=== PATIENT | female | born 1970 | race Caucasian/White ===

== ENCOUNTER 2017-10-08 10:56 | Inpatient (IN) | payer OTHER ==
--- NOTE | 2017-10-08 12:17 | PDOC ---
History of Present Illness - General History Source: Patient, Family Exam Limitations: Language Barrier (Refused translater, but had Son translate for her) - History of Present Illness Initial Comments: 10/08/17 13:07 The patient is a 47 y.o female with significant past medical history of DM, HLD , HTN, who presents to the emergency room today complaining of a progressively worsening wound on her right great toe. She reports that she noticed a blister 5 days ago that has gotten larger. She states that the redness and swelling started to spread to her other toes and foot. She denies numbness and tingling of the lower extremity. Denies calf pain. Denies fever, chills, nausea, vomiting. Allergies: penicillin - pt describes the allergic reaction as "her body going to sleep." PCP: Dr. Rui Meza 10/08/17 13:47 <Azra Nguyen - Last Filed: 10/08/17 13:47> <Manohar Carrington - Last Filed: 10/08/17 14:54> - General Chief Complaint: Wound Stated Complaint: wound Time Seen by Provider: 10/08/17 12:17 Past History <Azra Nguyen - Last Filed: 10/08/17 13:47> - Past Medical History COPD: No Diabetes: Yes HTN: Yes Hypercholesterolemia: Yes - Surgical History Appendectomy: Yes - Suicide/Smoking/Psychosocial Hx Smoking History: Never smoked Have you smoked in the past 12 months: No Information on smoking cessation initiated: No Hx Alcohol Use: No Drug/Substance Use Hx: No Substance Use Type: None <Manohar Carrington - Last Filed: 10/08/17 14:54> - Past Medical History Allergies/Adverse Reactions: Allergies Allergy/AdvReac Type Severity Reaction Status Date / Time Penicillins Allergy Verified 10/08/17 10:58 Review of Systems - Review of Systems Able to Perform ROS?: Yes Comments:: 10/08/17 13:08 CONSTITUTIONAL: No fever, no chills, no fatigue EYES: No visual changes ENT: No ear pain, no sore throat CARDIOVASCULAR: No chest pain, no palpitations RESPIRATORY: No cough, no SOB GI: No abdominal pain, no nausea, no vomiting, no constipation, no diarrhea GENITOURINARY: No dysuria, no frequency, no hematuria MUSKULOSKELETAL: No back pain, no joint pain, no myalgias SKIN: +progressively worsening wound on the right great toe. NEURO: No headache <Azra Nguyen - Last Filed: 10/08/17 13:47> *Physical Exam - Vital Signs Last Vital Signs Temp Pulse Resp BP Pulse Ox 98.3 F 76 16 171/79 100 10/08/17 10:58 10/08/17 10:58 10/08/17 10:58 10/08/17 10:58 10/08/17 10:58 - Physical Exam Comments: 10/08/17 13:08 CONSTITUTIONAL: Well-appearing; well-nourished; in no apparent distress HEAD: Normocephalic; atraumatic EYES: PERRL; EOM intact ENMT: External appears normal; normal oropharynx NECK: Supple; nontender; no cervical lymphadenopathy CARD: Normal S1, S2; no murmurs, rubs, or gallops RESP: Normal chest excursion with respiration; breath sounds clear and equal bilaterally; no wheezes, rhonchi, or rales ABD: Soft, non-distended; non-tender; no palpable organomegaly, no palpable hernias NEURO: No focal neurological deficiencies. <Azra Nguyen - Last Filed: 10/08/17 13:47> - Vital Signs Last Vital Signs Temp Pulse Resp BP Pulse Ox 98.3 F 76 16 171/79 100 10/08/17 10:58 10/08/17 10:58 10/08/17 10:58 10/08/17 10:58 10/08/17 10:58 - Physical Exam Comments: 10/08/17 14:25 EXTR: R. foot: + extensive erythema of the dorsal and plantar aspects of the foot, with soft tissue swelling extending to the ankle joint proximally; foot is warm to touch, with a 2cm ulceration to the medial aspect of the 1st mtp joint with several small areas of necrosis. DP/TP: +2 Skin: see above <Manohar Carrington - Last Filed: 10/08/17 14:54> ED Treatment Course - LABORATORY CBC & Chemistry Diagram: 10/08/17 13:05 10/08/17 13:05 <Azra Nguyen - Last Filed: 10/08/17 13:47> - LABORATORY CBC & Chemistry Diagram: 10/08/17 13:05 10/08/17 13:05 <Manohar Carrington - Last Filed: 10/08/17 14:54> Medical Decision Making - Medical Decision Making 10/08/17 14:29 Patient is a 47-year-old female with history of diabetes who presents with signs and symptoms of acute right foot cellulitis with possible great toe osteomyelitis. Blood cultures been obtained. Will obtain ESR and CRP. Right foot x-ray shows periosteal reaction likely consistent with osteomyelitis. We' ll administer broad-spectrum antibiotics. Will admit for broad-spectrum IV antibiotics and further treatment. <Manohar Carrington - Last Filed: 10/08/17 14:54> *DC/Admit/Observation/Transfer - Attestations Scribe Attestion: 10/08/17 13:08 Documentation prepared by MAYNOR Blackman, acting as clinical medical transcriptionist for Manohar Carrington MD. <Azra Nguyen - Last Filed: 10/08/17 13:47> - Discharge Dispostion Admit: Yes - Attestations Physician Attestion: 10/08/17 14:24 The documentation was prepared by the scribe under my direct supervision. I have reviewed the documentation which correctly represents the findings, medical decision-making and critical action taken by me. <Manohar Carrington - Last Filed: 10/08/17 14:54> Diagnosis at time of Disposition: Osteomyelitis Qualifiers: Osteomyelitis type: unspecified type Osteomyelitis location: foot Laterality: right Qualified Code(s): M86.9 - Osteomyelitis, unspecified - Discharge Dispostion Condition at time of disposition: Fair - Referrals Referrals: Rui Meza MD [Primary Care Provider] - - Patient Instructions - Post Discharge Activity
[2017-10-08 13:21] LABS: BASO % 0.6 % (0-2.0); EOS % 0.6 % (0-4.5); HEMATOCRIT 41.1 % (32.4-45.2); HEMOGLOBIN 13.9 GM/dL (10.7-15.3); LYMPH % 22.2 % (8-40); MCH 29.5 pg (25.7-33.7); MCHC 33.8 g/dl (32.0-36.0); MEAN CELL VOLUME 87.2 fl (80-96); MEAN PLT VOLUME 9.8 fl (7.5-11.1); MONO % 4.9 % (3.8-10.2); NEUT % 71.7 % (42.8-82.8); PLATELET COUNT 341 K/MM3 (134-434); RBC 4.72 M/mm3 (3.60-5.2); RDW 13.1 % (11.6-15.6); WHITE BLOOD COUNT 10.2 K/mm3 (4.0-10.0)
[2017-10-08 13:32] LABS: INR 1.1 (0.82-1.09); PROTHROMBIN TIME (PATIENT) 12.4 SEC (9.98-11.88)
[2017-10-08] MEDS ORDERED: VANCOMYCIN 1,250 MG in DEXTROSE 5%-WATER - 250 ML IVPB ONE (13:46)
[2017-10-08] MEDS ORDERED: PIPERACIL/TAZOB 3.375 GM 3.375 GM/50 ML PREMIX IVPB ONE (13:47)
[2017-10-08 13:53] LABS: ALBUMIN 3.7 g/dl (3.4-5.0); ALK PHOS 131 U/L (45-117); ANION GAP 6 (8-16); BILIRUBIN,TOTAL 0.4 mg/dL (0.2-1.0); BLOOD UREA NITROGEN 8 mg/dL (7-18); CHLORIDE 105 mmol/L (98-107); CO2 28 mmol/L (21-32); CREATININE 0.4 mg/dL (0.55-1.02); GLUCOSE,RANDOM 163 mg/dL (74-106); SGPT/ALT 18 U/L (12-78); SODIUM 139 mmol/L (136-145); TOT PROT 7.9 g/dl (6.4-8.2)
[2017-10-08 13:57] LABS: POTASSIUM 4.4 mmol/L (3.5-5.1); SGOT/AST 28 U/L (15-37)
[2017-10-08] MEDS ORDERED: PIPERACILLIN/TAZOB 3.375 GM 3.375 GM in DEXTROSE 5%-WATER - 50 ML IVPB ONE (15:00)
[2017-10-08] MEDS ORDERED: PIPERACILLIN/TAZOB 3.375 GM 3.375 GM/50 ML BAG IVPB ONE (15:28)
[2017-10-08 15:29] LABS: ERYTHROCYTE SEDIMENTATION RATE 66 mm/hr (0-20)
--- NOTE | 2017-10-08 15:37 | HP ---
CHIEF COMPLAINT: cellulitis of right foot. PCP:PCP: Dr. Rui Meza HISTORY OF PRESENT ILLNESS: The patient is a 47 y.o female with significant past medical history of DM, HLD, HTN, who was sent in by her pcp to emergency room. Abhi reports that on 6 days ago she saw a blister on her foot and she peeled it. After that some clear fluid came out and next day she noticed redness around her toe which kept on incresing. She also noticed swelling in her right great toe which has increased to middle of dorsum her foot last 3-4 days. She also reports pain 5/10, increases on touch and walk. Denies fever and chills, denies purulent discharge. Denies numbness or weakness in both legs but reports tingling sensation. Denies trauma, insect bite, wear normal fitting shoes, take care of her feet herself ( cut toe nails 2 week ago) ER course was notable for: (1)cbc, cmp (2)vanco zosyn. (3)blood culture, xray foot Recent Travel: no PAST MEDICAL HISTORY: DM, HTN, HLD PAST SURGICAL HISTORY: appendectomy, CS Social History: Smoking:no Alcohol:no Drugs: no Family History: not relevent Allergies Penicillins Allergy (Verified 10/08/17 10:58) HOME MEDICATIONS: REVIEW OF SYSTEMS CONSTITUTIONAL: Absent: fever, chills, diaphoresis, generalized weakness, malaise, loss of appetite, weight change HEENT: Absent: rhinorrhea, nasal congestion, throat pain, throat swelling, difficulty swallowing, CARDIOVASCULAR: Absent: chest pain, syncope, palpitations, irregular heart rate, lightheadedness , peripheral edema RESPIRATORY: Absent: cough, shortness of breath, dyspnea with exertion, orthopnea, wheezing, stridor, hemoptysis GASTROINTESTINAL: Absent: abdominal pain, abdominal distension, nausea, vomiting, diarrhea, constipation, melena, hematochezia GENITOURINARY: Absent: dysuria, frequency, urgency, hesitancy, hematuria, flank pain, genital pain MUSCULOSKELETAL: Absent: myalgia, arthralgia, SKIN: as above HEMATOLOGIC/IMMUNOLOGIC: Absent: easy bleeding, easy bruising, ENDOCRINE: Absent: unexplained weight gain, unexplained weight loss, heat intolerance, cold intolerance NEUROLOGIC: Absent: headache, focal weakness or paresthesias, dizziness, unsteady gait, PSYCHIATRIC: Absent: anxiety, depression, PHYSICAL EXAMINATION Vital Signs - 24 hr 10/08/17 10:58 Temperature 98.3 F Pulse Rate 76 Respiratory 16 Rate Blood Pressure 171/79 O2 Sat by Pulse 100 Oximetry (%) GENERAL: Awake, alert, and fully oriented, in no acute distress. HEAD: Normal with no signs of trauma. EARS, NOSE, THROAT: Moist mucous membranes. NECK: Normal range of motion, JVD, or masses. LUNGS: Breath sounds equal, clear to auscultation bilaterally. No wheezes, and no crackles. No accessory muscle use. HEART: Regular rate and rhythm, normal S1 and S2 without murmur, ABDOMEN: Soft, nontender, not distended, normoactive bowel sounds, no guarding, no rebound, no masses. MUSCULOSKELETAL: Normal range of motion at all joints. UPPER EXTREMITIES: 2+ pulses, warm, well-perfused. No cyanosis. No clubbing. No peripheral edema. LOWER EXTREMITIES: right foot, skin appears to be shiny, erythema present from toes and upto dorsum of foot, 2x2 cm ulcer present on medial aspect of great toe , no active discharge, erythema present around ulcer, tender to touch, margins clean. NEUROLOGICAL: Cranial nerves II-XII intact. Normal speech. sensation to fine touch present in b/l lower limb PSYCHIATRIC: Cooperative. Good eye contact. Appropriate mood and affect. SKIN: Warm, dry, Laboratory Results - last 24 hr 10/08/17 10/08/17 10/08/17 13:05 13:05 13:05 WBC 10.2 H RBC 4.72 Hgb 13.9 Hct 41.1 MCV 87.2 MCH 29.5 MCHC 33.8 RDW 13.1 Plt Count 341 MPV 9.8 Neutrophils % 71.7 Lymphocytes % 22.2 Monocytes % 4.9 Eosinophils % 0.6 Basophils % 0.6 ESR 66 H PT with INR 12.40 H INR 1.10 Sodium 139 Potassium 4.4 Chloride 105 Carbon Dioxide 28 Anion Gap 6 L BUN 8 Creatinine 0.4 L Creat Clearance w eGFR > 60 Random Glucose 163 H Calcium 9.0 Total Bilirubin 0.4 AST 28 ALT 18 Alkaline Phosphatase 131 H C-Reactive Protein 1.6 H Total Protein 7.9 Albumin 3.7 Blood Type Antibody Screen 10/08/17 13:05 WBC RBC Hgb Hct MCV MCH MCHC RDW Plt Count MPV Neutrophils % Lymphocytes % Monocytes % Eosinophils % Basophils % ESR PT with INR INR Sodium Potassium Chloride Carbon Dioxide Anion Gap BUN Creatinine Creat Clearance w eGFR Random Glucose Calcium Total Bilirubin AST ALT Alkaline Phosphatase C-Reactive Protein Total Protein Albumin Blood Type O POSITIVE Antibody Screen Negative ASSESSMENT/PLAN: The patient is a 47 y.o female with significant past medical history of DM, HLD, HTN, sent it by her pcp for cellulitis of right foot. Cellulitis right foot with DM, ? osteo IV antibiotic vanc, ceftriaxone limb elevation wound care consult daily dressing on ulcer on great toe. ID consult podiatry consult control blood sugar. DM hold metformin 100mg bid start sliding scale levemir 15 bid ( home dose 30 bid). If sugar remain high can go up on levemir. bgm HTN losartan 50mg daily HLD lipitor 20mg Fluid: orally allowed electrolyte: repeat in am nutrition: diabetic diet dvt pro: heparin sq gi pro: zantac dispo: medsurg. Visit type - Emergency Visit Emergency Visit: Yes Care time: The patient presented to the Emergency Department on the above date and was hospitalized for further evaluation of their emergent condition. - New Patient This patient is new to me today: Yes Date on this admission: 10/08/17 - Critical Care Critical Care patient: No Hospitalist Screening - Colonoscopy Questionnaire Colonoscopy Questionnaire: Colonoscopy Questionnaire - Patient: 50 - 75 years old and never had a screening colonoscopy: Unknown History of colon or rectal polyps, or CA: Unknown History of IBD, Crohn's disease or UC: Unknown History of abdominal radiation therapy as a child: Unknown - Relative: 1 with colon or rectal CA, or polyps at age 60 or younger: Unknown Colon or rectal CA diagnosed at age 45 or younger: Unknown Multiple relatives with colon or rectal CA: Unknown - Outcome: Screening Result: Negative Screen
--- NOTE | 2017-10-08 16:20 | PN ---
Teaching Attending Note Name of Resident: Chad Hairston ATTENDING PHYSICIAN STATEMENT I saw and evaluated the patient. I reviewed the resident's note and discussed the case with the resident. I agree with the resident's findings and plan as documented. SUBJECTIVE: This is a 47 year old woman with a history of HTN, hyperlipidemia, type 2 DM who was sent to the ED by her PCP because of a wound on her right 1st toe. The wound started as a blister 6 days ago. She broke the blister and clear fluid drained. The next day, the area became red and swollen. The redness and swelling increased and spread onto the dorsal surface of the foot. She denies fever, chills. OBJECTIVE: Vital Signs Period Temp Pulse Resp BP Sys/Heart Pulse Ox Last 24 Hr 98.3 F 76 16 171/79 100 HEART: S1S2, RRR LUNGS: Clear ABDOMEN: Obese, soft, non-zachary, non-distended, normal BS EXTREMITIES: Ulcer of medial right 1st toe with surrounding erythema. Erythema of toes and dorsal surface of right foot Laboratory Tests 10/08/17 10/08/17 10/08/17 13:05 13:05 13:05 WBC 10.2 H RBC 4.72 Hgb 13.9 Hct 41.1 MCV 87.2 MCH 29.5 MCHC 33.8 RDW 13.1 Plt Count 341 MPV 9.8 Neutrophils % 71.7 Lymphocytes % 22.2 Monocytes % 4.9 Eosinophils % 0.6 Basophils % 0.6 ESR 66 H PT with INR 12.40 H INR 1.10 Sodium 139 Potassium 4.4 Chloride 105 Carbon Dioxide 28 Anion Gap 6 L BUN 8 Creatinine 0.4 L Creat Clearance w eGFR > 60 Random Glucose 163 H Calcium 9.0 Total Bilirubin 0.4 AST 28 ALT 18 Alkaline Phosphatase 131 H C-Reactive Protein 1.6 H Total Protein 7.9 Albumin 3.7 Blood Type Antibody Screen 10/08/17 13:05 WBC RBC Hgb Hct MCV MCH MCHC RDW Plt Count MPV Neutrophils % Lymphocytes % Monocytes % Eosinophils % Basophils % ESR PT with INR INR Sodium Potassium Chloride Carbon Dioxide Anion Gap BUN Creatinine Creat Clearance w eGFR Random Glucose Calcium Total Bilirubin AST ALT Alkaline Phosphatase C-Reactive Protein Total Protein Albumin Blood Type O POSITIVE Antibody Screen Negative ASSESSMENT AND PLAN: This is a 47 year old woman with a history of HTN, hyperlipidemia, type 2 DM who presented to the ED with a wound on her right 1st toe. 1. Right 1st toe ulcer with cellulitis of right foot - Afebrile, WBC 10.2 - X-rays show no evidence of osteomyelitis but ESR is 66 - Continue Zosyn, Vancomycin - Check C-RP - Podiatry consult - Consider MRI 2. Type 2 DM - Hold metformin - Continue Levemir - Fingersticks with Novolog sliding scale 3. HTN - Continue Cozaar 4. Hyperlipidemia - Continue Lipitor
[2017-10-08] MEDS: INSULIN SLIDING SCALE (NOVOLOG) 1 VIAL SQ SCH ×2 (17:25→22:11)
[2017-10-08] MEDS: HEPARIN NA (PORCINE) 5,000 UNITS/ML 1ML VIAL SQ SCH ×2 (17:26→22:11)
[2017-10-08] MEDS: LOSARTAN POTASSIUM 50 MG TABLET (FP) PO SCH (17:26)
[2017-10-08] MEDS ORDERED: HEPARIN NA (PORCINE) 5,000 UNITS/ML 1ML VIAL ONE (17:27)
[2017-10-08] MEDS ORDERED: LOSARTAN POTASSIUM 25 MG TABLET ONE (17:27)
[2017-10-08] MEDS ORDERED: INSULIN REGULAR HUMAN 100 UNITS/ML *VIAL ONE (17:28)
[2017-10-08] MEDS ORDERED: CEFTRIAXONE 1 GM/50 ML BAG ONE (17:53)
[2017-10-08] MEDS ORDERED: ATORVASTATIN CA 20 MG TABLET (FP) PO SCH (22:00)
[2017-10-08] MEDS: BACITRACIN 15 GM TUBE TOPICAL OINTMENT TP SCH (22:11)
[2017-10-08] MEDS: CEFTRIAXONE 1 GM in SODIUM CHLORIDE 50 ML IVPB SCH (22:12)
[2017-10-08] MEDS: INSULIN DETEMIR 100 UNITS/ML MDV SQ SCH (22:12)
[2017-10-09] MEDS: HEPARIN NA (PORCINE) 5,000 UNITS/ML 1ML VIAL SQ SCH ×3 (06:36→22:45)
[2017-10-09] MEDS: INSULIN DETEMIR 100 UNITS/ML MDV SQ SCH ×2 (06:37→22:46)
[2017-10-09] MEDS: INSULIN SLIDING SCALE (NOVOLOG) 1 VIAL SQ SCH ×4 (06:37→22:46)
[2017-10-09 08:16] LABS: BASO % 0.6 % (0-2.0); EOS % 0.5 % (0-4.5); HEMATOCRIT 37.5 % (32.4-45.2); HEMOGLOBIN 12.7 GM/dL (10.7-15.3); LYMPH % 25.8 % (8-40); MCH 29.4 pg (25.7-33.7); MCHC 33.9 g/dl (32.0-36.0); MEAN CELL VOLUME 86.9 fl (80-96); MEAN PLT VOLUME 9.5 fl (7.5-11.1); MONO % 5.9 % (3.8-10.2); NEUT % 67.2 % (42.8-82.8); PLATELET COUNT 312 K/MM3 (134-434); RBC 4.31 M/mm3 (3.60-5.2); RDW 13.3 % (11.6-15.6); WHITE BLOOD COUNT 9.2 K/mm3 (4.0-10.0)
[2017-10-09 08:41] LABS: INR 1.15 (0.82-1.09)
[2017-10-09 08:44] LABS: ALBUMIN 3.2 g/dl (3.4-5.0); ANION GAP 6 (8-16); BLOOD UREA NITROGEN 9 mg/dL (7-18); CHLORIDE 108 mmol/L (98-107); CO2 29 mmol/L (21-32); GLUCOSE,RANDOM 150 mg/dL (74-106); MAGNESIUM 1.8 mg/dL (1.8-2.4); POTASSIUM 3.9 mmol/L (3.5-5.1); SODIUM 143 mmol/L (136-145)
[2017-10-09 08:47] LABS: ALK PHOS 111 U/L (45-117); BILIRUBIN,TOTAL 0.2 mg/dL (0.2-1.0); CREATININE 0.4 mg/dL (0.55-1.02); PHOSPHOROUS 3.8 mg/dL (2.5-4.9); SGOT/AST 16 U/L (15-37); SGPT/ALT 20 U/L (12-78); TOT PROT 6.8 g/dl (6.4-8.2)
[2017-10-09] MEDS: BACITRACIN 15 GM TUBE TOPICAL OINTMENT TP SCH ×2 (09:45→22:46)
[2017-10-09] MEDS: LOSARTAN POTASSIUM 50 MG TABLET (FP) PO SCH (09:46)
[2017-10-09] MEDS: RANITIDINE HCL 150 MG TABLET (FP) PO SCH (09:49)
--- NOTE | 2017-10-09 10:13 | CONSULT ---
Consult - text type - Consultation Consultation Note: Podiatry Consultation: 47 year old DM F presents with R great toe ulcer, cellulitis. Patient notes the ulcer started as a blister on her right great toe that developed increased redness/swelling. She denies F/V/N/C/SOB/CP. She is afebrile, VSS. She does note her sugars have not been appropriately controlled. PMHx: DM, HTN, HLP Meds: noted ALL: PCN KEITH: Pedal pulses palpable, TG WNL, CFT brisk to all toes bilaterally. On the right great toe, there is a diabetic ulcer medial hallux with mostly fibrotic base, no purulent drainage, no fluctuance, moderate periwound erythema, no streaking cellulitis, moderate pedal edema. No tenderness to palpation. WBC: 9.2 ESR: 66 CRP: 1.1 R foot XR: no evidence of osteomyelitis, no fracture Blood Cx: pending Imp: 47 year old DM F with R great toe diabetic ulcer, cellulitis 1. Abx per Infectious Disease 2. Local wound care: bactroban 3. F/u blood cx 4. Would benefit from wound cx 5. Can obtain MRI R foot to assess for osteomyelitis. Her ESR is elevated, CRP is normal. 6. Rx surgical offloading shoe. 7. Thank you for the courtesy of this consultation. Katherine Small DPM
--- NOTE | 2017-10-09 10:23 | PN ---
Progress Note (short form) - Note Progress Note: ID Full note dictated and seen with primary care team Open ulcer right great toe lat aspect with swelling and erythema swelling right foot Laboratory Tests 10/08/17 10/08/17 10/09/17 13:05 13:05 07:54 WBC 9.2 Hgb 12.7 Hct 37.5 Plt Count 312 ESR 66 H C-Reactive Protein 1.6 H 10/09/17 07:54 WBC Hgb Hct Plt Count ESR C-Reactive Protein 1.1 H Assessment SSTI right great toe with cellulitis ??? 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
--- NOTE | 2017-10-09 10:58 | CONS ---
DATE OF CONSULTATION: DATE OF DICTATION: 10/09/2017 HISTORY OF PRESENT ILLNESS: This is a 47-year-old [place] female, insulin-dependent diabetic, who presents for evaluation of a soft tissue ulcer of the right great toe which she says she first noted approximately 1 week ago while taking a shower. It may have started as a blister, but subsequently she developed swelling of the right foot with redness. She denied any fever or chills and I am asked to see her for further evaluation and recommendations. PAST MEDICAL HISTORY: Hypertension, diabetes. MEDICATIONS: As noted, Lipitor, Zantac, insulin, Cozaar. ALLERGIES: PENICILLIN, but patient is very vague about what occurred, noting that her body went "to sleep." FAMILY HISTORY: Noncontributory. SOCIAL HISTORY: [place] immigrant. Nonsmoker. HIV status unknown. Lives with her family. No substance abuse. REVIEW OF SYSTEMS: All systems reviewed and noncontributory. PHYSICAL EXAMINATION:General: Revealed a [id number] female in no acute distress. Vital Signs: Temperature 97.9, pulse 88, blood pressure 150/94, respirations 20. Neck: Supple. No adenopathy. Lungs: Clear to percussion and auscultation. Heart: S1, S2. Regular rhythm. Abdomen: Soft, nontender. No organomegaly. Extremities: Reveal an ulcer of the lateral aspect of the right great toe, surrounding erythema extending to the foot with swelling of the foot noted. No purulent drainage noted. No localized tenderness, fluctuance appreciated. LABORATORY DATA: The white count 10.2, hemoglobin 13.9. ESR 66. BUN 8, creatinine 0.4, alkaline phosphatase 131. CRP 1.6. Two sets of blood cultures pending. X-ray of the foot shows no evidence of any acute osteomyelitis, fracture. Chest x-ray normal. ASSESSMENT: Skin and soft tissue infection/ulcer to the lateral aspect, right great toe, with secondary cellulitis. The possibility of osteomyelitis considered, though the injury seems relatively recent and the wound noted 1 week ago. She has a vague history of allergy to PENICILLIN, but I would feel comfortable treating her with a cephalosporin. Along with vancomycin will give cefepime. Await MRI. Treat cellulitis. Discuss with the primary care team and Dr. Small, Podiatry. ELOISA NGUYEN M.D. LESLIE/[id number]
[2017-10-09] MEDS: CEFTRIAXONE 1 GM in SODIUM CHLORIDE 50 ML IVPB SCH (12:21)
[2017-10-09 12:45] VITALS: BMI 30.3
--- NOTE | 2017-10-09 13:29 | EKG ---
Test Reason : Blood Pressure : / mmHG Vent. Rate : 069 BPM Atrial Rate : 069 BPM P-R Int : 154 ms QRS Dur : 080 ms QT Int : 384 ms P-R-T Axes : 024 077 -56 degrees QTc Int : 411 ms NORMAL SINUS RHYTHM T WAVE ABNORMALITY, CONSIDER ANTEROLATERAL ISCHEMIA ABNORMAL ECG NO PREVIOUS ECGS AVAILABLE Confirmed by SAVANAH BANGURA MD ([id number]) on 10/09/2017 1:29:05 PM Referred By: Confirmed By:SAVANAH BANGURA MD
[2017-10-09] MEDS: VANCOMYCIN 1,250 MG in DEXTROSE 5%-WATER - 250 ML IVPB SCH (14:58)
--- NOTE | 2017-10-09 15:08 | PN ---
<Jacqueline Moncada - Last Filed: 10/09/17 16:21> Physical Exam: SUBJECTIVE: Patient seen and examined. Togolese speaking feels well, mild pain in right foot denies fever, chest pain, shortness of breath. OBJECTIVE: Vital Signs Period Temp Pulse Resp BP Sys/Heart Pulse Ox Last 24 Hr 97.8 F-98.8 F 67-88 18-20 132-161/61-94 98 GENERAL: The patient is awake, alert, in no acute distress. HEAD: Normal with no signs of trauma. EYES: PERRL, extraocular movements intact, sclera anicteric, conjunctiva clear. No ptosis. ENT: Ears normal, nares patent, oropharynx clear without exudates, moist mucous membranes. no thrush NECK: Trachea midline, full range of motion, supple. LUNGS: Breath sounds equal, clear to auscultation bilaterally, no wheezes, no crackles, no accessory muscle use. HEART: Regular rate and rhythm, S1, S2 without murmur, rub or gallop. ABDOMEN: Soft, nontender, nondistended, normoactive bowel sounds, no guarding, no rebound. EXTREMITIES: 2+ radial and DP pulses, warm, well-perfused, no edema. base of right great toe with open ulcer and surrounding erythema. no discharge, no underlying fluctuation. NEUROLOGICAL: Cranial nerves II through XII grossly intact. Normal speech, facial symmetry PSYCH: Normal mood, normal affect. SKIN: Warm, dry, normal turgor. Laboratory Results - last 24 hr 10/08/17 10/08/17 10/08/17 13:05 13:05 18:25 WBC RBC Hgb Hct MCV MCH MCHC RDW Plt Count MPV Neutrophils % Lymphocytes % Monocytes % Eosinophils % Basophils % ESR 66 H PT with INR INR Sodium Potassium Chloride Carbon Dioxide Anion Gap BUN Creatinine Creat Clearance w eGFR POC Glucometer Random Glucose Hemoglobin A1c % Calcium Phosphorus Magnesium Total Bilirubin AST ALT Alkaline Phosphatase C-Reactive Protein 1.6 H Total Protein Albumin Blood Type O POSITIVE 10/08/17 10/09/17 10/09/17 21:24 06:17 07:54 WBC 9.2 RBC 4.31 Hgb 12.7 Hct 37.5 MCV 86.9 MCH 29.4 MCHC 33.9 RDW 13.3 Plt Count 312 MPV 9.5 Neutrophils % 67.2 Lymphocytes % 25.8 Monocytes % 5.9 Eosinophils % 0.5 Basophils % 0.6 ESR PT with INR INR Sodium Potassium Chloride Carbon Dioxide Anion Gap BUN Creatinine Creat Clearance w eGFR POC Glucometer 164 139 Random Glucose Hemoglobin A1c % Calcium Phosphorus Magnesium Total Bilirubin AST ALT Alkaline Phosphatase C-Reactive Protein Total Protein Albumin Blood Type 10/09/17 10/09/17 10/09/17 07:54 07:54 07:54 WBC RBC Hgb Hct MCV MCH MCHC RDW Plt Count MPV Neutrophils % Lymphocytes % Monocytes % Eosinophils % Basophils % ESR PT with INR 13.00 H INR 1.15 H Sodium 143 Potassium 3.9 Chloride 108 H Carbon Dioxide 29 Anion Gap 6 L BUN 9 Creatinine 0.4 L Creat Clearance w eGFR > 60 POC Glucometer Random Glucose 150 H Hemoglobin A1c % Calcium 9.0 Phosphorus 3.8 Magnesium 1.8 Total Bilirubin 0.2 D AST 16 ALT 20 Alkaline Phosphatase 111 C-Reactive Protein 1.1 H Total Protein 6.8 Albumin 3.2 L Blood Type 10/09/17 07:54 WBC RBC Hgb Hct MCV MCH MCHC RDW Plt Count MPV Neutrophils % Lymphocytes % Monocytes % Eosinophils % Basophils % ESR PT with INR INR Sodium Potassium Chloride Carbon Dioxide Anion Gap BUN Creatinine Creat Clearance w eGFR POC Glucometer Random Glucose Hemoglobin A1c % 10.7 H Calcium Phosphorus Magnesium Total Bilirubin AST ALT Alkaline Phosphatase C-Reactive Protein Total Protein Albumin Blood Type Active Medications Home Medication List Medication Instructions Recorded Confirmed Type Insulin Detemir [Levemir Flextouch] 35 unit IM Q12H 10/09/17 10/09/17 History Losartan Potassium [Cozaar -] 50 mg PO DAILY 10/09/17 10/09/17 History Metformin HCl [Glucophage] 1,000 mg PO BID 10/09/17 10/09/17 History Simvastatin 20 mg PO HS 10/09/17 10/09/17 History Active Medications Active Medications Atorvastatin Calcium (Lipitor -) 10 mg PO HS [facility] Bacitracin (Bacitracin -) 1 applic TP BID [facility] Last Admin: 10/09/17 09:45 Dose: 1 applic Heparin Sodium (Porcine) (Heparin -) 5,000 unit SQ TID [facility] Last Admin: 10/09/17 14:58 Dose: 5,000 unit Vancomycin HCl 1,250 mg/ (Dextrose) 250 mls @ 166.667 mls/hr IVPB BID@0200, 1400 [facility] PRN Reason: Protocol Last Admin: 10/09/17 14:58 Dose: 166.667 mls/hr Cefepime HCl 2 gm/ Dextrose 100 mls @ 200 mls/hr IVPB Q8H-IV [facility] Insulin Aspart (Novolog Vial Sliding Scale -) 1 vial SQ ACHS [facility] PRN Reason: Protocol Last Admin: 10/09/17 12:45 Dose: Not Given Insulin Detemir (Levemir Vial) 15 units SQ BID@0700,2200 [facility] Last Admin: 10/09/17 06:37 Dose: 15 units Losartan Potassium (Cozaar -) 50 mg PO DAILY [facility] Ranitidine HCl (Zantac -) 150 mg PO DAILY [facility] Last Admin: 10/09/17 09:49 Dose: 150 mg ASSESSMENT/PLAN: 47 yr old woman with DM II on insulin therapy and HTN presents with ulcer on her right foot that she noticed on Friday. #Right foot wound - Evaluated by Dr. Small - foot xray without fracture or signs of osteo, MRI pending to further evaluate for osteomyelitis given elevated ESR - Keep foot clean and dry - pt has pcn allergy, unclear reaction hx, attempted to reach Dr. Meza's office x2 but unable to reach staff for further clarification - abx: -- vanc+zosyn in ED 10/08 -- Cefepime 2gm q8hr + vanc 1250gm BID started 10/09 (Vanc trough due 10/10 before 1400 dose before 4th dose) #DM II uncontrolled - A1c 10 - NISS - levemir 15 units BID - diabetic diet - BGM ACHS - patient will need diet and exercise counseling to help manage uncontrolled diabetes - hold metformin while admitted #HTN - Losartan 50mg po qd #HLD - lipitor 10mg po HS #DVT prophylaxis - Heparin TID Visit type - Emergency Visit Emergency Visit: No - New Patient This patient is new to me today: Yes Date on this admission: 10/09/17 - Critical Care Critical Care patient: No <Matt Perez - Last Filed: 10/09/17 20:12> Physical Exam: Patient is a 47[place] for having open wound on her right toe. Translation was done by ID doctor. Patient stated that she started noticing it 4 days ago. presneted for further care. Vital Signs Temperature 98.4 F 10/09/17 12:32 Pulse Rate 67 10/09/17 12:32 Respiratory Rate 20 10/09/17 12:32 Blood Pressure 161/80 10/09/17 12:32 O2 Sat by Pulse Oximetry (%) 98 10/09/17 12:32 CBCD WBC 9.2 K/mm3 (4.0-10.0) 10/09/17 07:54 RBC 4.31 M/mm3 (3.60-5.2) 10/09/17 07:54 Hgb 12.7 GM/dL (10.7-15.3) 10/09/17 07:54 Hct 37.5 % (32.4-45.2) 10/09/17 07:54 MCV 86.9 fl (80-96) 10/09/17 07:54 MCHC 33.9 g/dl (32.0-36.0) 10/09/17 07:54 RDW 13.3 % (11.6-15.6) 10/09/17 07:54 Plt Count 312 K/MM3 (134-434) 10/09/17 07:54 MPV 9.5 fl (7.5-11.1) 10/09/17 07:54 CMP Sodium 143 mmol/L (136-145) 10/09/17 07:54 Potassium 3.9 mmol/L (3.5-5.1) 10/09/17 07:54 Chloride 108 mmol/L (98-107) H 10/09/17 07:54 Carbon Dioxide 29 mmol/L (21-32) 10/09/17 07:54 Anion Gap 6 (8-16) L 10/09/17 07:54 BUN 9 mg/dL (7-18) 10/09/17 07:54 Creatinine 0.4 mg/dL (0.55-1.02) L 10/09/17 07:54 Creat Clearance w eGFR > 60 (>60) 10/09/17 07:54 Random Glucose 150 mg/dL (74-106) H 10/09/17 07:54 Calcium 9.0 mg/dL (8.5-10.1) 10/09/17 07:54 Total Bilirubin 0.2 mg/dL (0.2-1.0) D 10/09/17 07:54 AST 16 U/L (15-37) 10/09/17 07:54 ALT 20 U/L (12-78) 10/09/17 07:54 Alkaline Phosphatase 111 U/L (45-117) 10/09/17 07:54 Total Protein 6.8 g/dl (6.4-8.2) 10/09/17 07:54 Albumin 3.2 g/dl (3.4-5.0) L 10/09/17 07:54 Current Medications Generic Name Dose Route Start Last Admin Trade Name Freq PRN Reason Stop Dose Admin Atorvastatin Calcium 10 mg 10/09/17 22:00 Lipitor - PO HS [facility] Bacitracin 1 applic 10/08/17 22:00 10/09/17 09:45 Bacitracin - TP 1 applic BID [facility] Administration Heparin Sodium (Porcine) 5,000 unit 10/08/17 15:45 10/09/17 14:58 Heparin - SQ 5,000 unit TID [facility] Administration Vancomycin HCl 1,250 mg/ 250 mls @ 166.667 mls/hr 10/09/17 14:00 10/09/17 14: 58 Dextrose IVPB 166.667 mls/hr BID@0200,1400 [facility] Administration Protocol Cefepime HCl 2 gm/ Dextrose 100 mls @ 200 mls/hr 10/09/17 18:00 10/09/17 19: 30 IVPB 200 mls/hr Q8H-IV [facility] Administration Insulin Aspart 1 vial 10/08/17 16:30 10/09/17 16:31 Novolog Vial Sliding Scale - SQ 2 unit ACHS [facility] Administration Protocol Insulin Detemir 15 units 10/08/17 22:00 10/09/17 06:37 Levemir Vial SQ 15 units BID@0700,2200 [facility] Administration Losartan Potassium 50 mg 10/10/17 10:00 Cozaar - PO DAILY [facility] Ranitidine HCl 150 mg 10/09/17 10:00 10/09/17 09:49 Zantac - PO 150 mg DAILY [facility] Administration Home Medications Medication Instructions Recorded Insulin Detemir [Levemir Flextouch] 35 unit IM Q12H 10/09/17 Losartan Potassium [Cozaar -] 50 mg PO DAILY 10/09/17 Metformin HCl [Glucophage] 1,000 mg PO BID 10/09/17 Simvastatin 20 mg PO HS 10/09/17 # Acute Right foot cellulitis with open wound on the medial side of the big toe. On IV Antibiotic Vanc. and cefepime IV. Wound care # T2DM will hold off Metformin now, will continue her Levemir and SS with coverage. DVT Px: Heparin
[2017-10-09] MEDS: CEFEPIME 2 GM in DEXTROSE 5%-WATER 100 ML IVPB SCH (19:30)
[2017-10-09] MEDS ORDERED: INSULIN (NOVOLOG) ASPART 100 UNITS/ML 10ML VIAL ONE (21:01)
[2017-10-09] MEDS: ATORVASTATIN CA 10 MG TABLET (FP) PO SCH (22:46)
[2017-10-10] MEDS: VANCOMYCIN 1,250 MG in DEXTROSE 5%-WATER - 250 ML IVPB SCH ×2 (01:05→14:00)
[2017-10-10] MEDS: CEFEPIME 2 GM in DEXTROSE 5%-WATER 100 ML IVPB SCH ×3 (01:44→17:52)
[2017-10-10] MEDS: INSULIN DETEMIR 100 UNITS/ML MDV SQ SCH ×2 (06:29→21:30)
[2017-10-10] MEDS: HEPARIN NA (PORCINE) 5,000 UNITS/ML 1ML VIAL SQ SCH ×3 (06:29→21:30)
[2017-10-10] MEDS: INSULIN SLIDING SCALE (NOVOLOG) 1 VIAL SQ SCH ×4 (06:30→21:31)
[2017-10-10 08:18] LABS: BASO % 0.6 % (0-2.0); EOS % 1.2 % (0-4.5); HEMATOCRIT 36.7 % (32.4-45.2); HEMOGLOBIN 12.5 GM/dL (10.7-15.3); LYMPH % 28.9 % (8-40); MCH 29.7 pg (25.7-33.7); MEAN CELL VOLUME 87.4 fl (80-96); MEAN PLT VOLUME 9.6 fl (7.5-11.1); MONO % 7.7 % (3.8-10.2); NEUT % 61.6 % (42.8-82.8); PLATELET COUNT 309 K/MM3 (134-434); RDW 13.5 % (11.6-15.6); WHITE BLOOD COUNT 7.4 K/mm3 (4.0-10.0)
[2017-10-10 08:53] LABS: ANION GAP 9 (8-16); BLOOD UREA NITROGEN 8 mg/dL (7-18); CALCIUM 8.9 mg/dL (8.5-10.1); CHLORIDE 107 mmol/L (98-107); CO2 26 mmol/L (21-32); CREATININE 0.5 mg/dL (0.55-1.02); GLUCOSE,RANDOM 161 mg/dL (74-106); POTASSIUM 3.8 mmol/L (3.5-5.1); SODIUM 142 mmol/L (136-145)
[2017-10-10] MEDS: LOSARTAN POTASSIUM 50 MG TABLET (FP) PO SCH (10:00)
[2017-10-10] MEDS: RANITIDINE HCL 150 MG TABLET (FP) PO SCH (10:00)
[2017-10-10] MEDS: BACITRACIN 15 GM TUBE TOPICAL OINTMENT TP SCH ×2 (10:00→21:31)
--- NOTE | 2017-10-10 12:51 | PN ---
<Luke Salomon - Last Filed: 10/10/17 13:28> Physical Exam: SUBJECTIVE: Patient seen and examined No acute events overnight. Patient feels well this morning. Denies any fever, chills, pain in the foot. OBJECTIVE: Vital Signs Period Temp Pulse Resp BP Sys/Heart Pulse Ox Last 24 Hr 98.3 F-98.7 F 57-68 18-18 127-148/67-86 99 GENERAL: The patient is awake, alert, in no acute distress. HEAD: Normal with no signs of trauma. EYES: PERRL, extraocular movements intact, sclera anicteric, conjunctiva clear. No ptosis. ENT: Ears normal, nares patent, oropharynx clear without exudates, moist mucous membranes. no thrush NECK: Trachea midline, full range of motion, supple. LUNGS: Breath sounds equal, clear to auscultation bilaterally, no wheezes, no crackles, no accessory muscle use. HEART: Regular rate and rhythm, S1, S2 without murmur, rub or gallop. ABDOMEN: Soft, nontender, nondistended, normoactive bowel sounds, no guarding, no rebound. EXTREMITIES: 2+ radial and DP pulses, warm, well-perfused, no edema. base of right great toe with open ulcer and improving erythema. no discharge, no underlying fluctuation. NEUROLOGICAL: Cranial nerves II through XII grossly intact. Normal speech, facial symmetry PSYCH: Normal mood, normal affect. SKIN: Warm, dry, normal turgor. Laboratory Results - last 24 hr 10/09/17 10/09/17 10/09/17 12:40 16:30 22:45 WBC RBC Hgb Hct MCV MCH MCHC RDW Plt Count MPV Neutrophils % Lymphocytes % Monocytes % Eosinophils % Basophils % Sodium Potassium Chloride Carbon Dioxide Anion Gap BUN Creatinine POC Glucometer 175 198 Random Glucose Calcium Urine HCG, Qual HIV 1&2 Antibody Screen Negative HIV P24 Antigen Negative 10/10/17 10/10/17 10/10/17 02:00 06:28 07:05 WBC 7.4 RBC 4.20 Hgb 12.5 Hct 36.7 MCV 87.4 MCH 29.7 MCHC 34.0 RDW 13.5 Plt Count 309 MPV 9.6 Neutrophils % 61.6 Lymphocytes % 28.9 Monocytes % 7.7 Eosinophils % 1.2 D Basophils % 0.6 Sodium Potassium Chloride Carbon Dioxide Anion Gap BUN Creatinine POC Glucometer 178 Random Glucose Calcium Urine HCG, Qual Negative HIV 1&2 Antibody Screen HIV P24 Antigen 10/10/17 07:05 WBC RBC Hgb Hct MCV MCH MCHC RDW Plt Count MPV Neutrophils % Lymphocytes % Monocytes % Eosinophils % Basophils % Sodium 142 Potassium 3.8 Chloride 107 Carbon Dioxide 26 Anion Gap 9 BUN 8 Creatinine 0.5 L POC Glucometer Random Glucose 161 H Calcium 8.9 Urine HCG, Qual HIV 1&2 Antibody Screen HIV P24 Antigen Active Medications Generic Name Dose Route Start Last Admin Trade Name Freq PRN Reason Stop Dose Admin Atorvastatin Calcium 10 mg 10/09/17 22:00 10/09/17 22:46 Lipitor - PO 10 mg HS [facility] Administration Bacitracin 1 applic 10/08/17 22:00 10/09/17 22:46 Bacitracin - TP 1 applic BID [facility] Administration Heparin Sodium (Porcine) 5,000 unit 10/08/17 15:45 10/10/17 06:29 Heparin - SQ 5,000 unit TID [facility] Administration Vancomycin HCl 1,250 mg/ 250 mls @ 166.667 mls/hr 10/09/17 14:00 10/10/17 01: 05 Dextrose IVPB 166.667 mls/hr BID@0200,1400 [facility] Administration Protocol Cefepime HCl 2 gm/ Dextrose 100 mls @ 200 mls/hr 10/09/17 18:00 10/10/17 01: 44 IVPB 200 mls/hr Q8H-IV [facility] Administration Insulin Aspart 1 vial 10/08/17 16:30 10/10/17 06:30 Novolog Vial Sliding Scale - SQ 2 unit ACHS [facility] Administration Protocol Insulin Detemir 15 units 10/08/17 22:00 10/10/17 06:29 Levemir Vial SQ 15 units BID@0700,2200 [facility] Administration Losartan Potassium 50 mg 10/10/17 10:00 Cozaar - PO DAILY [facility] Ranitidine HCl 150 mg 10/09/17 10:00 10/09/17 09:49 Zantac - PO 150 mg DAILY [facility] Administration ASSESSMENT/PLAN: 47 yr old woman with DM II on insulin therapy and HTN presents with ulcer on her right foot that she noticed on Friday. #Right foot wound - Evaluated by Dr. Small - foot xray without fracture or signs of osteo, MRI pending to further evaluate for osteomyelitis given elevated ESR - Keep foot clean and dry - pt has pcn allergy, unclear reaction hx - abx: -- vanc+zosyn in ED 10/08 -- Cefepime 2gm q8hr + vanc 1250gm BID started 10/09 #DM II uncontrolled - A1c 10 - NISS - levemir 15 units BID - diabetic diet - BGM ACHS - patient will need diet and exercise counseling to help manage uncontrolled diabetes - hold metformin while admitted #HTN - Losartan 50mg po qd #HLD - lipitor 10mg po HS #DVT prophylaxis - Heparin TID Dispo: pending MRI Visit type - Emergency Visit Emergency Visit: Yes ED Registration Date: 10/10/17 Care time: The patient presented to the Emergency Department on the above date and was hospitalized for further evaluation of their emergent condition. - New Patient This patient is new to me today: Yes Date on this admission: 10/10/17 - Critical Care Critical Care patient: No <Matt Perez - Last Filed: 10/10/17 16:33> Physical Exam: Patient is seen and examined. Vital Signs Temperature 98.5 F 10/10/17 14:00 Pulse Rate 70 10/10/17 14:00 Respiratory Rate 20 10/10/17 14:00 Blood Pressure 134/71 10/10/17 14:00 O2 Sat by Pulse Oximetry (%) 99 10/10/17 02:00 CBCD WBC 7.4 K/mm3 (4.0-10.0) 10/10/17 07:05 RBC 4.20 M/mm3 (3.60-5.2) 10/10/17 07:05 Hgb 12.5 GM/dL (10.7-15.3) 10/10/17 07:05 Hct 36.7 % (32.4-45.2) 10/10/17 07:05 MCV 87.4 fl (80-96) 10/10/17 07:05 MCHC 34.0 g/dl (32.0-36.0) 10/10/17 07:05 RDW 13.5 % (11.6-15.6) 10/10/17 07:05 Plt Count 309 K/MM3 (134-434) 10/10/17 07:05 MPV 9.6 fl (7.5-11.1) 10/10/17 07:05 CMP Sodium 142 mmol/L (136-145) 10/10/17 07:05 Potassium 3.8 mmol/L (3.5-5.1) 10/10/17 07:05 Chloride 107 mmol/L (98-107) 10/10/17 07:05 Carbon Dioxide 26 mmol/L (21-32) 10/10/17 07:05 Anion Gap 9 (8-16) 10/10/17 07:05 BUN 8 mg/dL (7-18) 10/10/17 07:05 Creatinine 0.5 mg/dL (0.55-1.02) L 10/10/17 07:05 Creat Clearance w eGFR > 60 (>60) 10/09/17 07:54 Random Glucose 161 mg/dL (74-106) H 10/10/17 07:05 Calcium 8.9 mg/dL (8.5-10.1) 10/10/17 07:05 Total Bilirubin 0.2 mg/dL (0.2-1.0) D 10/09/17 07:54 AST 16 U/L (15-37) 10/09/17 07:54 ALT 20 U/L (12-78) 10/09/17 07:54 Alkaline Phosphatase 111 U/L (45-117) 10/09/17 07:54 Total Protein 6.8 g/dl (6.4-8.2) 10/09/17 07:54 Albumin 3.2 g/dl (3.4-5.0) L 10/09/17 07:54 Current Medications Generic Name Dose Route Start Last Admin Trade Name Freq PRN Reason Stop Dose Admin Atorvastatin Calcium 10 mg 10/09/17 22:00 10/09/17 22:46 Lipitor - PO 10 mg HS [facility] Administration Bacitracin 1 applic 10/08/17 22:00 10/10/17 10:00 Bacitracin - TP 1 applic BID [facility] Administration Heparin Sodium (Porcine) 5,000 unit 10/08/17 15:45 10/10/17 13:36 Heparin - SQ 5,000 unit TID [facility] Administration Vancomycin HCl 1,250 mg/ 250 mls @ 166.667 mls/hr 10/09/17 14:00 10/10/17 01: 05 Dextrose IVPB 166.667 mls/hr BID@0200,1400 [facility] Administration Protocol Cefepime HCl 2 gm/ Dextrose 100 mls @ 200 mls/hr 10/09/17 18:00 10/10/17 10: 00 IVPB 200 mls/hr Q8H-IV [facility] Administration Insulin Aspart 1 vial 10/08/17 16:30 10/10/17 11:00 Novolog Vial Sliding Scale - SQ 6 unit ACHS [facility] Administration Protocol Insulin Detemir 15 units 10/08/17 22:00 10/10/17 06:29 Levemir Vial SQ 15 units BID@0700,2200 [facility] Administration Losartan Potassium 50 mg 10/10/17 10:00 10/10/17 10:00 Cozaar - PO 50 mg DAILY [facility] Administration Ranitidine HCl 150 mg 10/09/17 10:00 10/10/17 10:00 Zantac - PO 150 mg DAILY [facility] Administration Home Medications Medication Instructions Recorded Insulin Detemir [Levemir Flextouch] 35 unit IM Q12H 10/09/17 Losartan Potassium [Cozaar -] 50 mg PO DAILY 10/09/17 Metformin HCl [Glucophage] 1,000 mg PO BID 10/09/17 Simvastatin 20 mg PO HS 10/09/17 A/P: # Acute right foot cellulitis with open wound improving. swelling is reduced. On IV Cefepime and Vancomycin continue.ID on the case #T2DM continue Levemir with sliding scale, hold metformin DVT Px: Heparin
[2017-10-10] MEDS ORDERED: PT OWN MED DRAWER 7, Y5N ONE ×3 (13:29→21:44)
[2017-10-10] MEDS ORDERED: INSULIN (NOVOLOG) ASPART 100 UNITS/ML 10ML VIAL ONE ×2 (13:34→21:19)
--- NOTE | 2017-10-10 14:58 | PN ---
Progress Note (short form) - Note Progress Note: ID Vancomcyin Cefepime Selected Entries 10/10/17 14:00 Temperature 98.5 F Pulse Rate 70 Respiratory 20 Rate Blood Pressure 134/71 Foot swelling Dry eschar toe Microbiology 10/08/17 13:05 Blood - Peripheral Venous Blood Culture - Preliminary NO GROWTH OBTAINED AFTER 48 HOURS, INCUBATION TO CONTINUE FOR 3 DAYS. 10/08/17 13:05 Blood - Peripheral Venous Blood Culture - Preliminary NO GROWTH OBTAINED AFTER 48 HOURS, INCUBATION TO CONTINUE FOR 3 DAYS. Laboratory Tests 10/08/17 10/09/17 10/10/17 13:05 12:40 07:05 WBC 7.4 Hgb 12.5 Hct 36.7 Plt Count 309 ESR 66 H BUN Creatinine HIV 1&2 Antibody Screen Negative HIV P24 Antigen Negative 10/10/17 07:05 WBC Hgb Hct Plt Count ESR BUN 8 Creatinine 0.5 L HIV 1&2 Antibody Screen HIV P24 Antigen Assessment SSTI cellulitis rule out osteomyelitis Plan Check Vanco trough level and continue current antibiotics [facility] Problem List - Problems (1) Osteomyelitis Code(s): M86.9 - OSTEOMYELITIS, UNSPECIFIED Qualifiers: Osteomyelitis type: unspecified type Osteomyelitis location: foot Laterality: right Qualified Code(s): M86.9 - Osteomyelitis, unspecified (2) Cellulitis Code(s): L03.90 - CELLULITIS, UNSPECIFIED (3) Insulin dependent diabetes mellitus Code(s): E11.9 - TYPE 2 DIABETES MELLITUS WITHOUT COMPLICATIONS; 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
[2017-10-10] MEDS: ATORVASTATIN CA 10 MG TABLET (FP) PO SCH (21:30)
[2017-10-11] MEDS: CEFEPIME 2 GM in DEXTROSE 5%-WATER 100 ML IVPB SCH ×3 (01:31→17:01)
[2017-10-11] MEDS: VANCOMYCIN 1,250 MG in DEXTROSE 5%-WATER - 250 ML IVPB SCH ×2 (01:34→14:49)
[2017-10-11] MEDS: HEPARIN NA (PORCINE) 5,000 UNITS/ML 1ML VIAL SQ SCH ×3 (06:51→22:01)
[2017-10-11] MEDS: INSULIN SLIDING SCALE (NOVOLOG) 1 VIAL SQ SCH ×4 (06:51→22:00)
[2017-10-11] MEDS: INSULIN DETEMIR 100 UNITS/ML MDV SQ SCH ×2 (06:52→22:00)
[2017-10-11 08:43] LABS: BASO % 0.6 % (0-2.0); EOS % 1.1 % (0-4.5); HEMATOCRIT 35.9 % (32.4-45.2); HEMOGLOBIN 12.2 GM/dL (10.7-15.3); LYMPH % 24.4 % (8-40); MCH 29.7 pg (25.7-33.7); MCHC 33.9 g/dl (32.0-36.0); MEAN CELL VOLUME 87.7 fl (80-96); MEAN PLT VOLUME 9.7 fl (7.5-11.1); MONO % 7.9 % (3.8-10.2); PLATELET COUNT 288 K/MM3 (134-434); RBC 4.09 M/mm3 (3.60-5.2); RDW 13.3 % (11.6-15.6); WHITE BLOOD COUNT 7.9 K/mm3 (4.0-10.0)
[2017-10-11 09:18] LABS: ANION GAP 8 (8-16); BLOOD UREA NITROGEN 11 mg/dL (7-18); CALCIUM 8.8 mg/dL (8.5-10.1); CHLORIDE 108 mmol/L (98-107); CO2 25 mmol/L (21-32); CREATININE 0.6 mg/dL (0.55-1.02); GLUCOSE,RANDOM 174 mg/dL (74-106); POTASSIUM 4.1 mmol/L (3.5-5.1); SODIUM 141 mmol/L (136-145)
[2017-10-11] MEDS: BACITRACIN 15 GM TUBE TOPICAL OINTMENT TP SCH ×2 (09:27→22:03)
[2017-10-11] MEDS: LOSARTAN POTASSIUM 50 MG TABLET (FP) PO SCH (09:27)
[2017-10-11] MEDS: RANITIDINE HCL 150 MG TABLET (FP) PO SCH (09:27)
[2017-10-11] MEDS ORDERED: INSULIN (NOVOLOG) ASPART 100 UNITS/ML 10ML VIAL ONE ×3 (11:39→21:54)
--- NOTE | 2017-10-11 18:41 | PN ---
Physical Exam: SUBJECTIVE: Patient seen and examined Patient is comfortable with no acute distress. OBJECTIVE: Vital Signs Temperature 97.8 F 10/11/17 14:26 Pulse Rate 69 10/11/17 14:26 Respiratory Rate 18 10/11/17 14:26 Blood Pressure 136/66 10/11/17 14:26 O2 Sat by Pulse Oximetry (%) 98 10/11/17 10:00 GENERAL: The patient is awake, alert, and fully oriented, in no acute distress. HEAD: Normal with no signs of trauma. EYES: PERRL, extraocular movements intact, sclera anicteric, conjunctiva clear. No ptosis. ENT: Ears normal, nares patent, oropharynx clear without exudates, moist mucous membranes. NECK: Trachea midline, full range of motion, supple. LUNGS: Breath sounds equal, clear to auscultation bilaterally, no wheezes, no crackles, no accessory muscle use. HEART: Regular rate and rhythm, S1, S2 without murmur, rub or gallop. ABDOMEN: Soft, nontender, nondistended, normoactive bowel sounds, no guarding, no rebound, no hepatosplenomegaly, no masses. EXTREMITIES: 2+ pulses, warm, well-perfused, no edema. Right toe dry escar wound , no drainage , cellulitis is improving. NEUROLOGICAL: Cranial nerves II through XII grossly intact. Normal speech, gait is stable. PSYCH: Normal mood, normal affect. SKIN: Warm, dry, normal turgor, no rashes or lesions noted CBCD WBC 7.9 K/mm3 (4.0-10.0) 10/11/17 07:30 RBC 4.09 M/mm3 (3.60-5.2) 10/11/17 07:30 Hgb 12.2 GM/dL (10.7-15.3) 10/11/17 07:30 Hct 35.9 % (32.4-45.2) 10/11/17 07:30 MCV 87.7 fl (80-96) 10/11/17 07:30 MCHC 33.9 g/dl (32.0-36.0) 10/11/17 07:30 RDW 13.3 % (11.6-15.6) 10/11/17 07:30 Plt Count 288 K/MM3 (134-434) 10/11/17 07:30 MPV 9.7 fl (7.5-11.1) 10/11/17 07:30 CMP Sodium 141 mmol/L (136-145) 10/11/17 07:30 Potassium 4.1 mmol/L (3.5-5.1) 10/11/17 07:30 Chloride 108 mmol/L (98-107) H 10/11/17 07:30 Carbon Dioxide 25 mmol/L (21-32) 10/11/17 07:30 Anion Gap 8 (8-16) 10/11/17 07:30 BUN 11 mg/dL (7-18) 10/11/17 07:30 Creatinine 0.6 mg/dL (0.55-1.02) 10/11/17 07:30 Creat Clearance w eGFR > 60 (>60) 10/09/17 07:54 Random Glucose 174 mg/dL (74-106) H 10/11/17 07:30 Calcium 8.8 mg/dL (8.5-10.1) 10/11/17 07:30 Total Bilirubin 0.2 mg/dL (0.2-1.0) D 10/09/17 07:54 AST 16 U/L (15-37) 10/09/17 07:54 ALT 20 U/L (12-78) 10/09/17 07:54 Alkaline Phosphatase 111 U/L (45-117) 10/09/17 07:54 Total Protein 6.8 g/dl (6.4-8.2) 10/09/17 07:54 Albumin 3.2 g/dl (3.4-5.0) L 10/09/17 07:54 Home Medications Medication Instructions Recorded Insulin Detemir [Levemir Flextouch] 35 unit IM Q12H 10/09/17 Losartan Potassium [Cozaar -] 50 mg PO DAILY 10/09/17 Metformin HCl [Glucophage] 1,000 mg PO BID 10/09/17 Simvastatin 20 mg PO HS 10/09/17 Active Medications Generic Name Dose Route Start Last Admin Trade Name Freq PRN Reason Stop Dose Admin Atorvastatin Calcium 10 mg 10/09/17 22:00 10/10/17 21:30 Lipitor - PO 10 mg HS [facility] Administration Bacitracin 1 applic 10/08/17 22:00 10/11/17 09:27 Bacitracin - TP 1 applic BID [facility] Administration Heparin Sodium (Porcine) 5,000 unit 10/08/17 15:45 10/11/17 13:17 Heparin - SQ 5,000 unit TID [facility] Administration Vancomycin HCl 1,250 mg/ 250 mls @ 166.667 mls/hr 10/09/17 14:00 10/11/17 14: 49 Dextrose IVPB 166.667 mls/hr BID@0200,1400 [facility] Administration Protocol Cefepime HCl 2 gm/ Dextrose 100 mls @ 200 mls/hr 10/09/17 18:00 10/11/17 17: 01 IVPB 200 mls/hr Q8H-IV [facility] Administration Insulin Aspart 1 vial 10/08/17 16:30 10/11/17 17:01 Novolog Vial Sliding Scale - SQ 6 unit ACHS [facility] Administration Protocol Insulin Detemir 15 units 10/08/17 22:00 10/11/17 06:52 Levemir Vial SQ 15 units BID@0700,2200 [facility] Administration Losartan Potassium 50 mg 10/10/17 10:00 10/11/17 09:27 Cozaar - PO 50 mg DAILY [facility] Administration Ranitidine HCl 150 mg 10/09/17 10:00 10/11/17 09:27 Zantac - PO 150 mg DAILY [facility] Administration ASSESSMENT/PLAN: Patient is a 47 yr old woman with DM II on insulin therapy and HTN presents with ulcer of her right foot that she noticed on Friday. # Acute right foot cellulitis with open dry escar of right toe improving. swelling is reduced. continue IV Cefepime and Vancomycin continue. ID on the case #T2DM continue Levemir with sliding scale, hold metformin DVT Px: Heparin DC Planning possible Friday follow MRI result. Visit type - Emergency Visit Emergency Visit: Yes ED Registration Date: 10/10/17 Care time: The patient presented to the Emergency Department on the above date and was hospitalized for further evaluation of their emergent condition. - New Patient This patient is new to me today: No - Critical Care Critical Care patient: No - Discharge Referral Physician Referral: Dennis Ruano MD ([facility])
[2017-10-11] MEDS: ATORVASTATIN CA 10 MG TABLET (FP) PO SCH (22:01)
[2017-10-12] MEDS ORDERED: PT OWN MED DRAWER 7, Y5N ONE ×3 (01:29→09:52)
[2017-10-12] MEDS: VANCOMYCIN 1,250 MG in DEXTROSE 5%-WATER - 250 ML IVPB SCH ×2 (01:32→13:33)
[2017-10-12] MEDS: CEFEPIME 2 GM in DEXTROSE 5%-WATER 100 ML IVPB SCH ×3 (01:32→17:13)
[2017-10-12] MEDS: HEPARIN NA (PORCINE) 5,000 UNITS/ML 1ML VIAL SQ SCH ×3 (06:50→21:29)
[2017-10-12] MEDS: INSULIN SLIDING SCALE (NOVOLOG) 1 VIAL SQ SCH ×4 (06:50→21:32)
[2017-10-12] MEDS: INSULIN DETEMIR 100 UNITS/ML MDV SQ SCH ×2 (06:50→21:29)
[2017-10-12] MEDS: LOSARTAN POTASSIUM 50 MG TABLET (FP) PO SCH (09:55)
[2017-10-12] MEDS: RANITIDINE HCL 150 MG TABLET (FP) PO SCH (09:55)
[2017-10-12] MEDS: BACITRACIN 15 GM TUBE TOPICAL OINTMENT TP SCH ×2 (09:55→21:29)
--- NOTE | 2017-10-12 10:01 | PN ---
Physical Exam: SUBJECTIVE: Patient seen and examined. She has no complaints. OBJECTIVE: Vital Signs Period Temp Pulse Resp BP Sys/Heart Pulse Ox Last 24 Hr 97.8 F-98.8 F 60-72 18-20 110-137/66-77 97-98 GENERAL: The patient is awake, alert, and fully oriented, in no acute distress. LUNGS: Breath sounds equal, clear to auscultation bilaterally, no wheezes, no crackles, no accessory muscle use. HEART: Regular rate and rhythm, S1, S2 without murmur, rub or gallop. ABDOMEN: Soft, nontender, nondistended, normoactive bowel sounds, no guarding, no rebound, no hepatosplenomegaly, no masses. EXTREMITIES: 2+ pulses, warm, well-perfused, no edema. Ulcer of medial right 1st toe with no drainage, decreased erythema and edema of right 1st toe and right foot. Laboratory Results - last 24 hr 10/11/17 10/11/17 10/11/17 11:37 13:47 15:56 POC Glucometer 232 277 Vancomycin Pre-Dose 9.492 10/11/17 10/12/17 21:59 05:53 POC Glucometer 205 176 Vancomycin Pre-Dose Active Medications Generic Name Dose Route Start Last Admin Trade Name Freq PRN Reason Stop Dose Admin Atorvastatin Calcium 10 mg 10/09/17 22:00 10/11/17 22:01 Lipitor - PO 10 mg HS PALOMO Administration Bacitracin 1 applic 10/08/17 22:00 10/12/17 09:55 Bacitracin - TP 1 applic BID PALOMO Administration Heparin Sodium (Porcine) 5,000 unit 10/08/17 15:45 10/12/17 06:50 Heparin - SQ 5,000 unit TID PALOMO Administration Vancomycin HCl 1,250 mg/ 250 mls @ 166.667 mls/hr 10/09/17 14:00 10/12/17 01: 32 Dextrose IVPB 166.667 mls/hr BID@0200,1400 PALOMO Administration Protocol Cefepime HCl 2 gm/ Dextrose 100 mls @ 200 mls/hr 10/09/17 18:00 10/12/17 09: 55 IVPB 200 mls/hr Q8H-IV PALOMO Administration Insulin Aspart 1 vial 10/08/17 16:30 10/12/17 06:50 Novolog Vial Sliding Scale - SQ 2 unit ACHS PALOMO Administration Protocol Insulin Detemir 15 units 10/08/17 22:00 10/12/17 06:50 Levemir Vial SQ 15 units BID@0700,2200 PALOMO Administration Losartan Potassium 50 mg 10/10/17 10:00 10/12/17 09:55 Cozaar - PO 50 mg DAILY PALOMO Administration Ranitidine HCl 150 mg 10/09/17 10:00 10/12/17 09:55 Zantac - PO 150 mg DAILY PALOMO Administration ASSESSMENT/PLAN: This is a 47 year old woman with a history of HTN, hyperlipidemia, type 2 DM who presented to the ED with a wound on her right 1st toe. 1. Right 1st toe ulcer with cellulitis of right foot - MRI shows minimal to mild marrow edema of right 1st distal phalanx - ESR 66, C-RP 1.6 -> 1.1 - Continue Cefepime, Vancomycin - Continue wound care - Repeat MRI in 1 week 2. Type 2 DM - Metformin held - Continue Levemir, Novolog sliding scale 3. HTN - Continue Cozaar 4. Hyperlipidemia - Continue Lipitor Visit type - Emergency Visit Emergency Visit: Yes ED Registration Date: 10/10/17 Care time: The patient presented to the Emergency Department on the above date and was hospitalized for further evaluation of their emergent condition. - New Patient This patient is new to me today: No - Critical Care Critical Care patient: No - Discharge Referral Referred to [facility] Med P.C.: No
[2017-10-12] MEDS ORDERED: INSULIN (NOVOLOG) ASPART 100 UNITS/ML 10ML VIAL ONE ×3 (11:16→21:08)
--- NOTE | 2017-10-12 12:34 | PN ---
Progress Note (short form) - Note Progress Note: Podiatry: Seen/evaluated at bedside, NAD. Denies F/V/N/C/SOB/CP. Afebrile, VSS. Obtained MRI R foot. Using bacitracin for local wound care Rx. KEITH: R foot: pedal pulses palpable, TG wnl, CFT brisk to all toes. There is decreased edema/erythema to the right foot. There is a medial hallux diabetic ulcer with superficial eschar, no bone exposed, no purulent drainage, no fluctuance, no soft tissue crepitus, no signs of active infection. No tenderness to palpation. WBC: 7.9 ESR: 66 R foot MRI: minimal BME distal phalanx of hallux, most likely reactive vs. osteo. Needs repeat MRI x 1 week to reassess BME Imp: 47 year old DM F with R hallux ulcer and cellulitis 1. IV abx per Infectious Disease 2. Rx santyl for local wound care 3. Rx surgical offloading shoe 4. MRI reviewed. Does not look like an acute osteomyelitis based on the minimal BME. No surgical intervention at this time. 5. Recommend obtaining wound culture R great toe. 6. Will follow Katherine Small DPM
[2017-10-12] MEDS: ATORVASTATIN CA 10 MG TABLET (FP) PO SCH (21:30)
[2017-10-13] MEDS ORDERED: PT OWN MED DRAWER 7, Y5N ONE ×2 (01:42→09:35)
[2017-10-13] MEDS: CEFEPIME 2 GM in DEXTROSE 5%-WATER 100 ML IVPB SCH ×2 (01:45→10:01)
[2017-10-13] MEDS: VANCOMYCIN 1,250 MG in DEXTROSE 5%-WATER - 250 ML IVPB SCH ×2 (01:45→14:42)
[2017-10-13] MEDS: INSULIN SLIDING SCALE (NOVOLOG) 1 VIAL SQ SCH ×3 (06:04→16:38)
[2017-10-13] MEDS: HEPARIN NA (PORCINE) 5,000 UNITS/ML 1ML VIAL SQ SCH ×2 (06:04→14:42)
[2017-10-13] MEDS: INSULIN DETEMIR 100 UNITS/ML MDV SQ SCH (06:04)
[2017-10-13 08:18] VITALS: BP 147/86; PULSE 67; TEMP 98.6
[2017-10-13] MEDS: BACITRACIN 15 GM TUBE TOPICAL OINTMENT TP SCH (10:01)
[2017-10-13] MEDS: RANITIDINE HCL 150 MG TABLET (FP) PO SCH (10:02)
[2017-10-13] MEDS: LOSARTAN POTASSIUM 50 MG TABLET (FP) PO SCH (10:02)
--- NOTE | 2017-10-13 14:46 | PN ---
Physical Exam: SUBJECTIVE: Patient seen and examined No acute events overnight. Patient has no complaints this morning. Her leg feels better. Denies fever, chills, chest pain, shortness of breath. OBJECTIVE: Vital Signs Period Temp Pulse Resp BP Sys/Heart Pulse Ox Last 24 Hr 98.0 F-98.8 F 62-74 18-19 136-151/59-91 GENERAL: The patient is awake, alert, in no acute distress. HEAD: Normal with no signs of trauma. EYES: PERRL, extraocular movements intact, sclera anicteric, conjunctiva clear. No ptosis. ENT: Ears normal, nares patent, oropharynx clear without exudates, moist mucous membranes. no thrush NECK: Trachea midline, full range of motion, supple. LUNGS: Breath sounds equal, clear to auscultation bilaterally, no wheezes, no crackles, no accessory muscle use. HEART: Regular rate and rhythm, S1, S2 without murmur, rub or gallop. ABDOMEN: Soft, nontender, nondistended, normoactive bowel sounds, no guarding, no rebound. EXTREMITIES: 2+ radial and DP pulses, warm, well-perfused, no edema. base of right great toe with open ulcer and improving erythema. no discharge, no underlying fluctuation. NEUROLOGICAL: Cranial nerves II through XII grossly intact. Normal speech, facial symmetry PSYCH: Normal mood, normal affect. SKIN: Warm, dry, normal turgor. Laboratory Results - last 24 hr 10/12/17 10/12/17 10/13/17 16:19 20:55 05:59 POC Glucometer 243 227 190 10/13/17 11:08 POC Glucometer 264 Active Medications Generic Name Dose Route Start Last Admin Trade Name Geovaniq PRN Reason Stop Dose Admin Atorvastatin Calcium 10 mg 10/09/17 22:00 10/12/17 21:30 Lipitor - PO 10 mg HS PALOMO Administration Bacitracin 1 applic 10/08/17 22:00 10/13/17 10:01 Bacitracin - TP 1 applic BID PALOMO Administration Heparin Sodium (Porcine) 5,000 unit 10/08/17 15:45 10/13/17 06:04 Heparin - SQ 5,000 unit TID PALOMO Administration Vancomycin HCl 1,250 mg/ 250 mls @ 166.667 mls/hr 10/09/17 14:00 10/13/17 01: 45 Dextrose IVPB 166.667 mls/hr BID@0200,1400 PALOMO Administration Protocol Cefepime HCl 2 gm/ Dextrose 100 mls @ 200 mls/hr 10/09/17 18:00 10/13/17 10: 01 IVPB 200 mls/hr Q8H-IV PALOMO Administration Insulin Aspart 1 vial 10/08/17 16:30 10/13/17 12:01 Novolog Vial Sliding Scale - SQ 6 unit ACHS PALOMO Administration Protocol Insulin Detemir 20 units 10/12/17 22:00 10/13/17 06:04 Levemir Vial SQ 20 units BID@0700,2200 PALOMO Administration Losartan Potassium 50 mg 10/10/17 10:00 10/13/17 10:02 Cozaar - PO 50 mg DAILY PALOMO Administration Ranitidine HCl 150 mg 10/09/17 10:00 10/13/17 10:02 Zantac - PO 150 mg DAILY PALOMO Administration ASSESSMENT/PLAN: 47 year old woman with DM II on insulin therapy and HTN presents with ulcer on her right foot #Right foot wound - Evaluated by Dr. Small - foot xray without fracture or signs of osteo, MRI shows minimal to mild marrow edema - Keep foot clean and dry - pt has pcn allergy, unclear reaction hx - abx: -- vanc+zosyn in ED 10/08 -- Cefepime 2gm q8hr + vanc 1250gm BID started 10/09 -Repeat MRI in 1 week #DM II uncontrolled - A1c 10 - NISS - levemir 15 units BID - diabetic diet - BGM ACHS - patient will need diet and exercise counseling to help manage uncontrolled diabetes - hold metformin while admitted #HTN - Losartan 50mg po qd #HLD - lipitor 10mg po HS #DVT prophylaxis - Heparin TID Visit type - Emergency Visit Emergency Visit: Yes ED Registration Date: 10/10/17 Care time: The patient presented to the Emergency Department on the above date and was hospitalized for further evaluation of their emergent condition. - New Patient This patient is new to me today: No - Critical Care Critical Care patient: No
--- NOTE | 2017-10-13 15:29 | PN ---
Progress Note (short form) - Note Progress Note: ID Vancrhondacin Summersyn Selected Entries 10/13/17 08:00 Temperature 98.6 F Pulse Rate 67 Respiratory 18 Rate Blood Pressure 147/86 LLE erythema minimal No drainage Microbiology 10/08/17 13:05 Blood - Peripheral Venous Blood Culture - Final NO GROWTH AFTER 5 DAYS INCUBATION 10/08/17 13:05 Blood - Peripheral Venous Blood Culture - Final NO GROWTH AFTER 5 DAYS INCUBATION Laboratory Tests 10/08/17 10/11/17 10/11/17 13:05 07:30 07:30 WBC 7.9 Hgb 12.2 Plt Count 288 ESR 66 H BUN 11 Creatinine 0.6 Vancomycin Pre-Dose 10/11/17 13:47 WBC Hgb Plt Count ESR BUN Creatinine Vancomycin Pre-Dose 9.492 Assessment Cellulitis No osteomyelitis Plan Substitute Augmentin 875 bid 7 days Problem List - Problems (1) Osteomyelitis Code(s): M86.9 - OSTEOMYELITIS, UNSPECIFIED Qualifiers: Osteomyelitis type: unspecified type Osteomyelitis location: foot Laterality: right Qualified Code(s): M86.9 - Osteomyelitis, unspecified (2) Cellulitis Code(s): L03.90 - CELLULITIS, UNSPECIFIED (3) Insulin dependent diabetes mellitus Code(s): E11.9 - TYPE 2 DIABETES MELLITUS WITHOUT COMPLICATIONS; Z79.4 - CENTER RECEPTIONIST (CURRENT) USE OF INSULIN
--- NOTE | 2017-10-13 16:11 | DS ---
Physical Exam: Selected Entries 10/13/17 10/13/17 08:00 09:00 Temperature 98.6 F Pulse Rate 67 Respiratory 18 Rate Blood Pressure 147/86 O2 Sat by Pulse 99 Oximetry (%) Oxygen Delivery Room Air Method Laboratory Tests 10/08/17 10/08/17 10/09/17 13:05 13:05 07:54 WBC Hgb Hct Plt Count ESR 66 H Sodium Potassium Chloride Carbon Dioxide Anion Gap BUN Creatinine Random Glucose Hemoglobin A1c % C-Reactive Protein 1.6 H 1.1 H Urine HCG, Qual Vancomycin Pre-Dose HIV 1&2 Antibody Screen HIV P24 Antigen 10/09/17 10/09/17 10/10/17 07:54 12:40 02:00 WBC Hgb Hct Plt Count ESR Sodium Potassium Chloride Carbon Dioxide Anion Gap BUN Creatinine Random Glucose Hemoglobin A1c % 10.7 H C-Reactive Protein Urine HCG, Qual Negative Vancomycin Pre-Dose HIV 1&2 Antibody Screen Negative HIV P24 Antigen Negative 10/11/17 10/11/17 10/11/17 07:30 07:30 13:47 WBC 7.9 Hgb 12.2 Hct 35.9 Plt Count 288 ESR Sodium 141 Potassium 4.1 Chloride 108 H Carbon Dioxide 25 Anion Gap 8 BUN 11 Creatinine 0.6 Random Glucose 174 H Hemoglobin A1c % C-Reactive Protein Urine HCG, Qual Vancomycin Pre-Dose 9.492 HIV 1&2 Antibody Screen HIV P24 Antigen Microbiology 10/08/17 13:05 Blood - Peripheral Venous Blood Culture - Final NO GROWTH AFTER 5 DAYS INCUBATION 10/08/17 13:05 Blood - Peripheral Venous Blood Culture - Final NO GROWTH AFTER 5 DAYS INCUBATION CXR- normal chest Foot xray- Mild degenerative arthritis with no fracture or osteo Foot MRI- Minimal to mild marrow edema is seen within the distal phalanx of the first digit which is probably reactive and less likely due to early osteomyelitis. Correlate clinically. Follow-up MRI in approximately 1 week may be considered to evaluate for possible progressive marrow edema which would be suggestive of osteomyelitis. HOSPITAL COURSE: Date of Admission:10/10/17 Date of Discharge: 10/13/17 47 y.o female with significant past medical history of DM, HLD, HTN, who was sent in by her pcp to emergency room for cellulitis of the right foot. Patient admitted for IV antibiotics. Patient treated with Vancomycin and Cefepime for 6 days. Her symptoms resolved. MRI was done (results above). Patient d/c with keflex 500 mg po bid x 14 days. Patient will need repeat MRI in 1 week. Minutes to complete discharge: 39 Discharge Summary Reason For Visit: OSTEOMYELITIS Current Active Problems Cellulitis (Acute) Ulcer (Acute) HLD (hyperlipidemia) (Chronic) HTN (hypertension) (Chronic) Insulin dependent diabetes mellitus (Chronic) Condition: Stable - Instructions Diet, Activity, Other Instructions: You were in the hospital for an ulcer of your toe.You were treated with IV antibiotics. Continue to take your home medications. Start taking oral antibiotics for 7 more days (Keflex twice per day) Follow up with your primary care provider and modeling manager within 1 week. A referral has been provided for you. If you have chest pain, shortness of breath, or any new/worsening symptoms please come back to the hospital immediately. Referrals: Gallo Small MD [Staff Physician] - Rui Meza MD [Primary Care Provider] - Disposition: HOME - Home Medications Comprehensive Discharge Medication List: Ambulatory Orders Insulin Detemir [Levemir Flextouch] 35 unit IM Q12H 10/09/17 Losartan Potassium [Cozaar -] 50 mg PO DAILY 10/09/17 Metformin HCl [Glucophage] 1,000 mg PO BID 10/09/17 Simvastatin 20 mg PO HS 10/09/17 Cephalexin [Keflex] 500 mg PO BID #15 capsule 10/13/17 This patient is new to me today: No Emergency Visit: Yes ED Registration Date: 10/10/17 Care time: The patient presented to the Emergency Department on the above date and was hospitalized for further evaluation of their emergent condition. Critical Care patient: No - Discharge Referral Referred to [facility] Med P.C.: Yes Physician Referral: Dennis Ruano MD ([facility])
--- NOTE | 2017-10-13 16:20 | PN ---
Teaching Attending Note Name of Resident: Luke Salomon ATTENDING PHYSICIAN STATEMENT I saw and evaluated the patient. I reviewed the resident's note and discussed the case with the resident. I agree with the resident's findings and plan as documented. SUBJECTIVE: No complaints. OBJECTIVE: Vital Signs Period Temp Pulse Resp BP Sys/Heart Pulse Ox Last 24 Hr 98.0 F-98.8 F 62-74 18-19 136-151/74-91 HEART: S1S2, RRR LUNGS: Clear ABDOMEN: Soft, non-tender, non-distended, normal BS EXTREMITIES: 2+ pulses, warm, well-perfused, no edema. Ulcer of medial right 1st toe with no drainage, decreased erythema and edema of right 1st toe and right foot. Laboratory Results - last 24 hr 10/12/17 10/12/17 10/13/17 16:19 20:55 05:59 POC Glucometer 243 227 190 10/13/17 11:08 POC Glucometer 264 Current Medications Generic Name Dose Route Start Last Admin Trade Name Freq PRN Reason Stop Dose Admin Atorvastatin Calcium 10 mg 10/09/17 22:00 10/12/17 21:30 Lipitor - PO 10 mg HS PALOMO Administration Bacitracin 1 applic 10/08/17 22:00 10/13/17 10:01 Bacitracin - TP 1 applic BID PALOMO Administration Heparin Sodium (Porcine) 5,000 unit 10/08/17 15:45 10/13/17 14:42 Heparin - SQ 5,000 unit TID PALOMO Administration Insulin Aspart 1 vial 10/08/17 16:30 10/13/17 12:01 Novolog Vial Sliding Scale - SQ 6 unit ACHS PALOMO Administration Protocol Insulin Detemir 20 units 10/12/17 22:00 10/13/17 06:04 Levemir Vial SQ 20 units BID@0700,2200 PALOMO Administration Losartan Potassium 50 mg 10/10/17 10:00 10/13/17 10:02 Cozaar - PO 50 mg DAILY PALOMO Administration Ranitidine HCl 150 mg 10/09/17 10:00 10/13/17 10:02 Zantac - PO 150 mg DAILY PALOMO Administration ASSESSMENT AND PLAN: This is a 47 year old woman with a history of HTN, hyperlipidemia, type 2 DM who presented to the ED with a wound on her right 1st toe. 1. Right 1st toe ulcer with cellulitis of right foot - MRI shows minimal to mild marrow edema of right 1st distal phalanx - ESR 66, C-RP 1.6 -> 1.1 - Treated with Cefepime, Vancomycin - discharge on Keflex - Repeat MRI in 1 week 2. Type 2 DM - Restart metformin - Continue Levemir 3. HTN - Continue Cozaar 4. Hyperlipidemia - Continue Lipitor
== END 2017-10-13 18:45 | disposition home or self-care (01) | DRG 380 ==
LOC: JER 10:56 → INTOOBSV 14:54 → UNDOADMOB 14:54 → JERBED 14:54 → J6S 10-09 12:10 → OBSVTOIN 10-10 12:10
PROVIDERS: ADMIT Internal Medicine; ATTEND Internal Medicine
DX: E11.621 Type 2 diabetes mellitus with foot ulcer (principal); L03.115 Cellulitis of right lower limb; L97.519 Non-pressure chronic ulcer of other part of right foot with unspecified severity; E11.65 Type 2 diabetes mellitus with hyperglycemia; Z88.0 Allergy status to penicillin; E78.5 Hyperlipidemia, unspecified; I10 Essential (primary) hypertension; Z79.4 Long term (current) use of insulin
CPT/HCPCS: 36415; 71045-TC-FY; 73630-TC-RT-FY; 73718-TC; 80048; 80053; 82962; 83036; 83735; 84100; 84703; 85025; 85610; 85651; 86140; 86850; 86900; 86901; 87040; 87389; 93005; 93010; 99283-25; G0378; G0480; J1644